=== PATIENT | male | born 1980 | race Caucasian/White ===

== ENCOUNTER 2025-01-31 06:19 | Emergency (ER) | payer OTHER, SELFPAY ==
[2025-01-31 06:45] VITALS: BP 142/87; PULSE 83; RESP 17; TEMP 36.6; O2SAT 100; BMI 33.5
--- NOTE | 2025-01-31 07:09 | ED.MALEGU ---
HPI - Male Genitourinary General Chief complaint: Urogenital-Male Stated complaint: Abdominal Pain, Vomiting, Nausea Time Seen by Provider: 01/31/25 06:27 Source: patient Mode of arrival: Ambulatory History of Present Illness HPI Narrative: 45-year-old gentleman history of acid reflux on Nexium presents with sudden onset left flank pain radiating to left groin region on that resulted in him having nonproductive cough and also some mid epigastric chest pain as a result. Patient denies nausea vomiting diarrhea constipation diaphoresis hematuria penile discharge. He has not done anything for this and has no history of diverticulitis, pancreatitis or kidney stone. Other than what is stated 14 point review of system is negative. Related Data Allergies Allergy/AdvReac Type Severity Reaction Status Date / Time No Known Drug Allergies Allergy Verified 01/31/25 06:45 Review of Systems Review of Systems ROS Unobtainable: All systems reviewed & are unremarkable except as noted in HPI and below Patient History Social History Smoking Status: Never smoker Smoking Status: Never smoker Exam Narrative Exam Narrative: GENERAL: [45] year old patient appears stated age. Well-developed patient, in mild distress. HEAD: Atraumatic. Normocephalic. EYES: Pupils equal round and reactive. Extraocular motions intact. No scleral icterus. No injection or drainage. NECK: Trachea midline. Non tender CARDIOVASCULAR: Regular rate and rhythm without murmurs, gallops, or rubs. RESPIRATORY: Clear to auscultation. Breath sounds equal bilaterally. No wheezes, rales, or rhonchi. GASTROINTESTINAL: Abdomen soft, non-tender, nondistended. EXTREMITIES: No edema or joint tenderness. BACK: Nontender without deformity or crepitance. No flank tenderness. NEURO: AOx3. SKIN: No rash or erythema of visible areas Initial Vital Signs Initial Vital Signs: Vital Signs Temperature 97.8 F 01/31/25 06:45 Pulse Rate 83 01/31/25 06:45 Respiratory Rate 17 01/31/25 06:45 Blood Pressure 142/87 H 01/31/25 06:45 Pulse Oximetry 100 01/31/25 06:45 Oxygen Delivery Method Room Air 01/31/25 06:45 Course Orders Ordered: Discontinued Medications Lactated Ringer's (Lactated Ringers) 1,000 mls @ 1,000 mls/hr IV BOLUS ONE Stop: 01/31/25 08:10 Last Infusion: 01/31/25 08:40 Dose: Infused Documented By: Admin: 01/31/25 07:22 Dose: 1,000 mls/hr Documented By: YARIEL Ketorolac Tromethamine (Ketorolac 30 Mg/Ml Vial) 15 mg IV NOW ONE Stop: 01/31/25 07:12 Last Admin: 01/31/25 07:22 Dose: 15 mg Documented By: YARIEL Ondansetron HCl (Ondansetron 4 Mg/2 Ml Inj) 4 mg IV NOW ONE Stop: 01/31/25 06:32 Last Admin: 01/31/25 07:22 Dose: 4 mg Documented By: YARIEL Vital Signs Vital signs: Vital Signs - 8 hr 01/31/25 06:45 Temperature 97.8 F Pulse Rate 83 Respiratory Rate 17 Blood Pressure 142/87 H Pulse Oximetry 100 Oxygen Delivery Method Room Air MDM - Male Genitourinary Lab Data 01/31/25 07:10 01/31/25 07:10 Labs: Lab Results 01/31/25 01/31/25 Range/Units 07:10 08:00 WBC 13.3 H (4.5-11.0) X10^3/uL RBC 5.24 (4.5-5.9) X10^6/uL Hgb 15.8 (13.5-17.5) g/dL Hct 44.8 (41-53) % MCV 85.4 (80-100) fL MCH 30.2 (26-34) PG MCHC 35.4 (30-36) % RDW 13.0 (11.6-14.8) % Plt Count 240 (150-400) X10^3/uL Neut % (Auto) 87.8 H (50-75) % Lymph % (Auto) 5.5 L (25-40) % [place] % (Auto) 5.8 (3-14) % Eos % (Auto) 0.1 L (2-4) % Baso % (Auto) 0.8 (0-2) % Neut # (Auto) 75804 H (6049-8081) /uL Lymph # (Auto) 700 L (9304-5866) /uL [place] # (Auto) 800 (0-900) /uL Eos # (Auto) 0 (0-450) /uL Baso # (Auto) 100 (0-100) /uL Sodium 139 (137-145) mmol/L Potassium 3.7 (3.4-5.1) mmol/L Chloride 107 (98-107) mmol/L Carbon Dioxide 16 L (22-32) mmol/L BUN 16 (9-20) mg/dL Creatinine 1.26 H (0.66-1.25) mg/dL Estimated GFR > 60 (>60) mL/min BUN/Creatinine Ratio 12.7 (6-22) Glucose 114 H (70-99) mg/dL Calcium 9.4 (8.4-10.2) mg/dL Total Bilirubin 0.9 (0.2-1.3) mg/dL AST 41 (17-59) IU/L ALT 48 (<50) IU/L Alkaline Phosphatase 105 (38-126) U/L Troponin I < 0.012 (0.01-0.034) ng/mL Total Protein 7.9 (6.3-8.2) g/dL Albumin 4.9 (3.5-5.0) g/dL Globulin 3.0 (1.7-4.1) g/dL Albumin/Globulin Ratio 1.6 (1.0-2.8) Lipase 171 (23-300) U/L Urine RBC 1-5/hpf (0-5/HPF) Urine WBC 0-1/hpf (0-5/HPF) Ur Squamous Epith Cells 10-30 /hpf H (0-5/HPF) Urine Bacteria None seen (None) Ur Culture Indicated? Cult not indicated Vol Urine Centrifuged 10ml (spun) Urine Dip Bedside Urine Glucose Negative Bedside Urine Bilirubin - Negative Bedside Urine Ketone - Negative Urine Specific [place] 1.005 Bedside Urine Occult Blood ++ Bedside Urine pH 6.5 Bedside Urine Protein - Negative Bedside Urine Urobilinogen - Negative Bedside Urine Nitrite - Negative Bedside Urine Leukocytes - Negative Esterase Imaging Data CT scan - abdomen/pelvis: Radiologist's Impression: [address] [address] [address] Scan Report Signed Patient: Christiano Melendrez MR#: [id number] : 1980 Acct:[id number] Age/Sex: 45 / M Date of Service: 01/31/25 Loc: ED Accession Number: [id number] Procedure: CT abdomen pelvis w con Ordering Provider: Bryant Hooks D.O. PROCEDURE: CT ABDOMEN PELVIS W CON INDICATIONS: L flank LLQ pain TECHNIQUE: After the administration of intravenous contrast, axial sections acquired from the lung bases to the pubic symphysis. Coronal and sagittal reformats were performed. For radiation dose reduction, the following was used: automated exposure control, adjustment of mA and/or kV according to patient size. COMPARISON: None. FINDINGS: Image quality: Diagnostic. Lower Chest: Small hiatal hernia. ABDOMEN: Liver: No solid mass. 2.2 cm segment 2 hepatic cyst. Gallbladder: No radiopaque gallstones or wall thickening. Biliary ducts: No biliary dilation. Pancreas: No ductal dilation. Spleen: Size is within normal limits. Adrenal Glands: No adrenal nodules. Kidneys and Ureters: Mild left-sided hydronephrosis and hydroureter, with urothelial wall thickening. There is a delayed left-sided nephrogram. Stomach and Bowel: Normal colonic caliber, without significant wall thickening. Peritoneum: No abnormal intraperitoneal fluid. No free air. Ventral Wall: Small umbilical hernia containing fat. Abdominal Nodes: No retroperitoneal or mesenteric adenopathy by size criteria. Vessels: Aorta and inferior vena cava are normal in size. PELVIS: Pelvic Organs: Unremarkable. Bladder: Punctate stone within the bladder. Pelvic Nodes: No enlarged lymph nodes. Miscellaneous: No inguinal hernias are seen. Bones: No aggressive osseous abnormality. IMPRESSION: Recently passed 2 mm stone located within the bladder, with residual inflammatory changes of the left kidney including mild left-sided hydronephrosis, hydroureter, delayed nephrogram and urothelial wall thickening. MDM Narrative Medical decision making narrative: All labwork, Vital signs, conference coordinator note, medication list and previous ER visits all reviewed. CT abd pelvis Recently passed 2 mm stone located within the bladder, with residual inflammatory changes of the left kidney including mild left-sided hydronephrosis, hydroureter, delayed nephrogram and urothelial wall thickening. WBC 13.3 BUN 16 creatinine 1.26 UA 10-30 HPF squamous cell. Differential diagnosis kidney stone, kidney infection, diverticulitis, constipation, pancreatitis. Keep hydrated return with new or worsening symptoms Discharge Plan Departure Patient Disposition: Home Clinical Impression: Kidney stone Instructions: DI for Kidney Stones Activity Restrictions/Additional Instructions: Return with new or worsening symptoms. Keep hydrated. Follow up PCP in 1-2 weeks if no improvement in symptoms. Stand Alone Forms: Patient Portal/API
[2025-01-31 07:21] LABS: Add Manual Diff / Slide Review NO; Hematocrit 44.8 % (41-53); Hemoglobin 15.8 g/dL (13.5-17.5); Lymphocytes Absolute Auto 700 /uL (1100-4500); Mean Corpuscular HGB Conc 35.4 % (30-36); Mean Corpuscular Hemoglobin 30.2 PG (26-34); Mean Corpuscular Volume 85.4 fL (80-100); Platelet Count 240 X10^3/uL (150-400)
[2025-01-31] MEDS: ONDANSETRON 4 MG/2 ML INJ IV (07:22)
[2025-01-31] MEDS: LACTATED RINGERS 1,000 ML 1000 ML IV (07:22)
[2025-01-31] MEDS: KETOROLAC 30 MG/ML VIAL 15 MG IV (07:22)
--- NOTE | 2025-01-31 07:29 | PC.NURSE ---
Pt having decreased urinary output with low back pain and pain in testicle. Pt having nausea,no vomiting
[2025-01-31 07:32] LABS: Alanine Aminotransferase 48 IU/L (<50); Albumin 4.9 g/dL (3.5-5.0); Albumin Globulin Ratio 1.6 (1.0-2.8); Alkaline Phosphatase 105 U/L (38-126); Blood Urea Nitrogen 16 mg/dL (9-20); Calcium 9.4 mg/dL (8.4-10.2); Carbon Dioxide 16 mmol/L (22-32); Chloride 107 mmol/L (98-107); Estimated Glomerular Filt Rate > 60 mL/min (>60); Globulin 3.0 g/dL (1.7-4.1); Glucose 114 mg/dL (70-99); HEMOLYSIS 32 (0-50); Lipase 171 U/L (23-300); Potassium 3.7 mmol/L (3.4-5.1); Sodium 139 mmol/L (137-145); Total Protein 7.9 g/dL (6.3-8.2)
[2025-01-31 07:44] LABS: Troponin I < 0.012 ng/mL (0.01-0.034)
[2025-01-31 08:47] LABS: Culture Indicated Urine Cult Not Indicated
[2025-01-31 09:18] VITALS: BP 126/73; PULSE 76; O2SAT 100
== END 2025-01-31 09:20 | disposition home or self-care (01) ==
PROVIDERS: Emergency Medicine; Emergency Provider Family Medicine
DX: N20.0 Calculus of kidney (principal); R07.89 Other chest pain
CPT/HCPCS: 36415; 74177; 80053; 81003; 81015; 83690; 84484; 85025; 96361; 96374; 96375; 99284; J1885; J2405; Q9967